=== PATIENT | male | born 1975 | race Caucasian/White ===

== ENCOUNTER → 2020-01-16 08:24 | Outpatient (CLI) | payer MEDICAID, SELFPAY ==
[2020-01-19 03:07] LABS: QNTFERON TB Mitogen Value > 10.00 IU/mL (.); QNTFERON TB Nil Value 0.01 IU/mL (.); QNTFERON TB1+ Ag Value 0.01 IU/mL (.); QNTFERON TB2+ Ag Value 0.01 IU/mL (.)
[2020-01-21 05:12] LABS: QNTIFERON TB Positive Criteria Negative (Negative)
== END ==
PROVIDERS: PCP Family Medicine; Referring Provider Dermatology; Visit Provider Dermatology
DX: L40.0 Psoriasis vulgaris (principal); L82.1 Other seborrheic keratosis; Z79.899 Other long term (current) drug therapy
CPT/HCPCS: 36415; 86480